=== PATIENT | female | born 1995 | race Caucasian/White ===

== ENCOUNTER 2023-08-26 13:42 | Emergency (ER) | payer OTHER, MEDICAID ==
[~2023-08-26] VITALS: Ht 170.2 cm; Wt 90.7 kg
[2023-08-26 13:56] VITALS: BP 136/76; PULSE 118; RESP 18; TEMP 98; O2SAT 98
[2023-08-26] MEDS: CYCLOBENZAPRINE 10 MG TAB PO ONE (15:54)
[2023-08-26] MEDS: KETOROLAC 30 MG/ML VIAL IM ONE (15:58)
[2023-08-26] MEDS: LIDOCAINE 5% 1 EA PATCH TP ONE (15:58)
[2023-08-26] MEDS ORDERED: ACETAMINOPHEN EXTRA STRENGTH 500 MG TAB PO ONE (16:20)
[2023-08-26] MEDS: IBUPROFEN 600 MG TAB PO ONE (16:41)
[2023-08-26] MEDS: HYDROcodone/APAP 5/325 MG 1 TAB TAB PO ONE (16:41)
[2023-08-26] MEDS ORDERED: LID5T TP (17:25)
[2023-08-26] MEDS ORDERED: CYCL-711 PO (17:25)
[2023-08-26] MEDS ORDERED: IBUP-2213 PO (17:25)
[2023-08-26 17:30] VITALS: TEMP 98
[2023-08-26 17:38] VITALS: BP 137/78; PULSE 92; RESP 18; O2SAT 99
== END 2023-08-26 17:38 | disposition home or self-care (01) ==
LOC: MED 13:42
DX: S39.012A Strain of muscle, fascia and tendon of lower back, initial encounter (principal); S30.0XXA Contusion of lower back and pelvis, initial encounter; I10 Essential (primary) hypertension; Z79.899 Other long term (current) drug therapy; V89.2XXA Person injured in unspecified motor-vehicle accident, traffic, initial encounter; Y93.89 Activity, other specified; Y92.410 Unspecified street and highway as the place of occurrence of the external cause; Y99.8 Other external cause status
CPT/HCPCS: 72170; 81025; 99284; J1885